=== PATIENT | female | born 1955 | race Caucasian/White ===

== ENCOUNTER 2019-12-11 19:44 | Emergency (ER) | payer OTHER ==
[~2019-12-11] VITALS: Ht 167.6 cm; Wt 86.2 kg
[2019-12-11 20:00] VITALS: Ht 167.6 cm; Wt 86.2 kg
[2019-12-11 22:02] VITALS: BP 138/69
== END 2019-12-11 22:02 | disposition home or self-care (01) ==
LOC: ED 19:44
DX: M17.11 Unilateral primary osteoarthritis, right knee (principal); I10 Essential (primary) hypertension; M19.90 Unspecified osteoarthritis, unspecified site; Z88.2 Allergy status to sulfonamides
CPT/HCPCS: J1885